=== PATIENT | female | born 1965 | race Caucasian/White ===

== ENCOUNTER 2024-08-27 15:57 | Emergency (ER) | payer MEDICARE, BC ==
[~2024-08-27] VITALS: Ht 175.3 cm; Wt 90.0 kg
[2024-08-27 16:00] VITALS: O2SAT 98
[2024-08-27] MEDS: KETOROLAC 30MG/ML VIAL IV ONE (16:43)
[2024-08-27] MEDS: ONDANSETRON HCL 4MG/2ML INJ IV ONE (16:43)
[2024-08-27 17:21] LABS: BASOPHILS % 0.4 % (0.0-2.0); EOSINOPHILS % 0.6 % (0.0-5.0); HEMATOCRIT. 35.4 % (36.0-48.0); LYMPHOCYTES % 15.6 % (20.0-50.0); MEAN CORPUSCULAR HEMOGLOBIN 31.3 pg (28.0-32.0); MEAN CORPUSCULAR VOLUME 92.2 fL (81.0-99.0); MEAN PLATELET VOLUME 8.2 fl (7.4-10.4); MONOCYTES % 5.5 % (2.0-8.0); NEUTROPHILS % 77.9 % (40.0-76.0); PLATELET 266 x1000/uL (130-400); RED BLOOD CELL COUNT 3.84 mill/uL (4.2-5.4); RED CELL DISTRIBUTION WIDTH 12.8 % (11.6-14.6); WHITE BLOOD COUNT 9.7 x1000/uL (4.5-11.0)
[2024-08-27 17:31] LABS: CARBON DIOXIDE 23 mEq/L (21-32); CHLORIDE 109 mEq/L (98-107); POTASSIUM 4.4 mEq/L (3.5-5.1); SODIUM 145 mEq/L (136-145)
[2024-08-27 17:32] LABS: CALCIUM 9.4 mg/dL (8.7-10.4)
[2024-08-27 17:36] LABS: CREATININE 0.8 mg/dL (0.6-1.0); GLUCOSE 99 mg/dL (70-105)
[2024-08-27 17:37] LABS: UREA NITROGEN BLOOD 7 mg/dL (9-23)
[2024-08-27 17:38] LABS: ALANINE AMINOTRANSFERASE 16 IU/L (10-49); ALBUMIN 4.7 g/dL (3.2-4.8); ASPARTATE AMINOTRANSFERASE 16 IU/L (<34)
[2024-08-27 17:39] LABS: BILIRUBIN DIRECT 0.1 mg/dL (<=3.0); BILIRUBIN TOTAL 0.3 mg/dL (0.1-1.0); PROTEIN TOTAL 7.4 g/dL (6.0-8.3)
[2024-08-27 17:40] LABS: ETHANOL BLOOD < 10 mg/dL (<10)
[2024-08-27 17:44] LABS: T4 FREE 1.48 ng/dL (0.89-1.76); THYROID STIMULATING HORMONE 1.31 uIU/mL (0.55-4.78)
[2024-08-27 18:58] VITALS: BP 165/89; PULSE 94; RESP 14; TEMP 36.2; O2SAT 100
== END 2024-08-27 19:15 | disposition home or self-care (01) ==
LOC: ER 15:57
DX: M62.838 Other muscle spasm (principal); I10 Essential (primary) hypertension; I69.354 Hemiplegia and hemiparesis following cerebral infarction affecting left non-dominant side; Z79.899 Other long term (current) drug therapy
CPT/HCPCS: 80076; 80048; 80320; 84439; 84443; 85025; 36415; 96374; 96375; 99285; J1885; J2405; G0480